=== PATIENT | male | born 1975 | race Caucasian/White ===

== ENCOUNTER 2016-03-28 17:33 | Inpatient (IN) | payer MEDICAID ==
[~2016-03-28] VITALS: Ht 172.7 cm; Wt 73.4 kg
[~2016-03-28 17:33] MED LIST: CLOT15C TD; QUET300T2 PO
[2016-03-28] MEDS ORDERED: INFLUENZA VIRUS VACCINE QVS 2016-17 (3YR+)/PF 60 MCG/0.5 ML SYRINGE IM ONE (19:30)
[2016-03-28] MEDS ORDERED: LORazepam 2 MG/ML VIAL IM ONE (19:45)
[2016-03-28] MEDS ORDERED: HALOPERIDOL LACTATE 5 MG/ML VIAL IM ONE (19:45)
[2016-03-28] MEDS ORDERED: DiphenhydrAMINE HCL 50 MG/ML VIAL IM ONE (19:45)
[2016-03-28 20:05] VITALS: BP 131/75
[2016-03-28 20:15] VITALS: BP 105/68
[2016-03-29 06:45] VITALS: BP 105/63
[2016-03-29 08:05] VITALS: BP 102/65
[2016-03-29] MEDS: LORazepam 2 MG TABLET PO PRN (08:39)
[2016-03-29] MEDS: NICOTINE 21 MG/24 HOUR PATCH TD SCH (08:40)
[2016-03-29] MEDS: FLUoxetine HCL 20 MG CAPSULE PO SCH (10:54)
[2016-03-29] MEDS: OLANZapine 5 MG TABLET PO SCH (10:54)
[2016-03-29 16:40] VITALS: BP 99/57
[2016-03-29 19:59] VITALS: BP 103/72
[2016-03-30 06:09] VITALS: BP 100/62
[2016-03-30 08:45] VITALS: BP 103/68
[2016-03-30] MEDS: OLANZapine 5 MG TABLET PO SCH (09:05)
[2016-03-30] MEDS: NICOTINE 21 MG/24 HOUR PATCH TD SCH (09:05)
[2016-03-30] MEDS: FLUoxetine HCL 20 MG CAPSULE PO SCH (09:05)
[2016-03-30] MEDS: LORazepam 2 MG TABLET PO PRN (14:02)
[2016-03-30 16:00] VITALS: BP 108/67
[2016-03-31 06:41] VITALS: BP 117/68
[2016-03-31 08:43] VITALS: BP 118/70
[2016-03-31] MEDS: OLANZapine 5 MG TABLET PO SCH (09:44)
[2016-03-31] MEDS: FLUoxetine HCL 20 MG CAPSULE PO SCH (09:44)
[2016-03-31] MEDS: LORazepam 2 MG TABLET PO PRN ×3 (09:44→20:20)
[2016-03-31] MEDS: NICOTINE 21 MG/24 HOUR PATCH TD SCH (09:45)
[2016-03-31 16:00] VITALS: BP 110/70
[2016-03-31] MEDS: ZOLPIDEM TARTRATE 10 MG TABLET PO PRN (20:20)
[2016-04-01 05:45] VITALS: BP 105/66
[2016-04-01] MEDS: LORazepam 2 MG TABLET PO PRN ×4 (05:52→18:48)
[2016-04-01 08:07] VITALS: BP 109/66
[2016-04-01] MEDS: FLUoxetine HCL 20 MG CAPSULE PO SCH (08:22)
[2016-04-01] MEDS: NICOTINE 21 MG/24 HOUR PATCH TD SCH (08:22)
[2016-04-01] MEDS: OLANZapine 5 MG TABLET PO SCH (08:22)
[2016-04-01 16:18] VITALS: BP 118/64
[2016-04-01] MEDS: ZOLPIDEM TARTRATE 10 MG TABLET PO PRN (20:32)
[2016-04-02] MEDS: LORazepam 2 MG TABLET PO PRN ×4 (05:39→19:10)
[2016-04-02] MEDS: OLANZapine 5 MG TABLET PO SCH (08:03)
[2016-04-02] MEDS: FLUoxetine HCL 20 MG CAPSULE PO SCH (08:03)
[2016-04-02] MEDS: NICOTINE 21 MG/24 HOUR PATCH TD SCH (08:04)
[2016-04-02 16:11] VITALS: BP 117/67
[2016-04-02] MEDS: HALOPERIDOL 5 MG TABLET PO PRN (18:35)
[2016-04-02] MEDS: ZOLPIDEM TARTRATE 10 MG TABLET PO PRN (21:20)
[2016-04-03 05:15] VITALS: BP 119/63
[2016-04-03] MEDS: LORazepam 2 MG TABLET PO PRN (05:25)
[2016-04-03] MEDS: HALOPERIDOL 5 MG TABLET PO PRN (05:25)
[2016-04-03] MEDS ORDERED: OLANZapine 5 MG TABLET PO SCH (09:00)
[2016-04-03] MEDS ORDERED: FLUoxetine HCL 20 MG CAPSULE PO SCH (09:00)
[2016-04-03] MEDS: NICOTINE 21 MG/24 HOUR PATCH TD SCH (09:31)
[2016-04-03] MEDS ORDERED: FLUO40CA7 PO (12:00)
[2016-04-03] MEDS ORDERED: OLAN5TAB30 PO (12:00)
== END 2016-04-03 16:30 | disposition home or self-care (01) | DRG 750 ==
LOC: B2S 19:09 → B3A 20:00
PROVIDERS: ADMIT Psychiatry & Neurology Child & Adolescent Psychiatry; ATTEND Psychiatry & Neurology Child & Adolescent Psychiatry
DX: F25.1 Schizoaffective disorder, depressive type (principal); F33.2 Major depressive disorder, recurrent severe without psychotic features; R45.851 Suicidal ideations; F15.90 Other stimulant use, unspecified, uncomplicated; F17.210 Nicotine dependence, cigarettes, uncomplicated; Z72.89 Other problems related to lifestyle
CPT/HCPCS: J1200; J1630; J2060

== ENCOUNTER 2018-10-11 13:58 | Emergency (ER) | payer MEDICAID ==
[~2018-10-11] VITALS: Ht 175.3 cm; Wt 77.0 kg
[~2018-10-11 13:58] MED LIST changes: -CLOT15C TD; +FLUO40CA7 PO; +OLAN5TAB30 PO; -QUET300T2 PO
[2018-10-11] MEDS ORDERED: ACETAMINOPHEN 500 MG TABLET PO ONE (14:45)
[2018-10-11 15:20] VITALS: BP 124/79
== END 2018-10-11 15:51 | disposition home or self-care (01) ==
LOC: EMS 14:01
DX: M25.511 Pain in right shoulder (principal); R07.81 Pleurodynia; F31.9 Bipolar disorder, unspecified; F17.210 Nicotine dependence, cigarettes, uncomplicated
CPT/HCPCS: 71101; 99406

== ENCOUNTER 2020-05-05 16:24 | Inpatient (IN) | payer MEDICAID ==
[~2020-05-05] VITALS: Ht 167.6 cm; Wt 69.9 kg
[2020-05-05 18:33] LABS: BASOPHILS % (AUTO) 0.2 % (0.0-2.0); HEMATOCRIT 38.1 % (41-53); HEMOGLOBIN 12.5 g/dL (13.5-17.5); LYMPHOCYTES # (AUTO) 1.7 K/uL (1.0-4.8); LYMPHOCYTES % (AUTO) 12.1 % (22.0-44.0); MEAN CORPUSCULAR HEMOGLOBIN 28.8 pg (26.0-34.0); MEAN CORPUSCULAR HGB CONC 32.7 G/dL (31.0-37.0); MEAN CORPUSCULAR VOLUME 88 fL (80-100); MONOCYTES % (AUTO) 7.2 % (2.0-9.0); NEUTROPHILS # (AUTO) 11.3 K/uL (1.8-7.7); NEUTROPHILS % (AUTO) 79.5 % (40.0-70.0); PLATELET COUNT (AUTO) 361 K/uL (150-450); RED BLOOD CELL COUNT(AUTO) 4.32 MIL/uL (4.50-5.90); RED CELL DISTRIBUTION WIDTH 13.8 % (11.5-14.5)
[2020-05-05 18:42] LABS: ANION GAP 9 mmol/L (8-16); CALCIUM, TOTAL 8.3 mg/dL (8.8-10.5); CARBON DIOXIDE 27 mmol/L (22-29); CHLORIDE 103 mmol/L (98-107); CREATININE 0.79 mg/dL (0.60-1.30); GLOMERULAR FILTR. RATE CALC > 60 mL/min (>60); GLUCOSE,RANDOM 92 mg/dL (70-110); POTASSIUM 4.1 mmol/L (3.5-5.1); SODIUM SERUM 139 mmol/L (136-145); UREA NITROGEN, BLOOD 11 mg/dL (7-18)
[2020-05-05 18:47] LABS: AMPHET/METH SCREEN,URINE NEGATIVE (NEGATIVE); BARBITURATE SCREEN, URINE NEGATIVE (NEGATIVE); BENZODIAZEPINES SCREEN,URINE POSITIVE (NEGATIVE); CANNABINOID SCREEN,URINE NEGATIVE (NEGATIVE); COCAINE SCREEN,URINE NEGATIVE (NEGATIVE); METHADONE SCREEN, URINE NEGATIVE (NEGATIVE); OPIATE SCREEN,URINE NEGATIVE (NEGATIVE); PHENCYCLIDINE SCREEN,URINE NEGATIVE (NEGATIVE)
[2020-05-05 18:48] LABS: ALANINE AMINOTRANSFERASE 23 U/L (12-78); ALBUMIN 3.4 g/dL (3.4-5.0); ALKALINE PHOSPHATASE 95 U/L (46-116); ASPARTATE AMINOTRANSFERASE 15 U/L (15-37); BILIRUBIN,TOTAL 0.2 mg/dL (0.1-1.0); TOTAL PROTEIN, SERUM 6.6 g/dL (6.4-8.2)
[2020-05-05] MEDS ORDERED: HALOPERIDOL 5 MG TABLET PO ONE (19:00)
[2020-05-05] MEDS ORDERED: LORazepam 2 MG TABLET PO ONE (19:00)
[2020-05-05 21:13] LABS: COVID AG,FIA SOURCE NASOPHARYNGEAL
[2020-05-05 22:10] VITALS: BP 126/66
[2020-05-05] MEDS ORDERED: INFLUENZA VIRUS VACCINE QVS 2020-21 (6MO+)/PF 60 MCG/0.5 ML SYRINGE IM ONE (22:30)
[2020-05-06 06:22] VITALS: BP 105/56
[2020-05-06 08:08] LABS: FREE T4 (FREE THYROXINE) 1.06 ng/dL (0.76-1.46); THYROID STIMULATING HORMONE 0.75 uIU/mL (0.36-3.74)
[2020-05-06 08:09] LABS: HEMOGLOBIN A1C 5.6 % (3.8-5.6)
[2020-05-06 08:11] LABS: CHOL/HDL RATIO 2.3 (4.2-7.3)
[2020-05-06 08:20] VITALS: BP 117/71
[2020-05-06] MEDS: NICOTINE 21 MG/24 HOUR PATCH TD SCH (11:41)
[2020-05-06] MEDS: FLUoxetine HCL 20 MG CAPSULE PO SCH (12:45)
[2020-05-06] MEDS: LORazepam 2 MG TABLET PO PRN (15:04)
[2020-05-06 16:14] VITALS: BP 138/70
[2020-05-06] MEDS ORDERED: ACETAMINOPHEN 325 MG TABLET PO PRN (19:00)
[2020-05-06] MEDS ORDERED: BACITRACIN 28 GM OINTMENT TP PRN (19:00)
[2020-05-06] MEDS ORDERED: MAGNESIUM HYDROXIDE SUSPENSION 30 ML UDCUP PO PRN (19:00)
[2020-05-06] MEDS ORDERED: PETROLATUM,WHITE 28 GM JELLY TP PRN (19:00)
[2020-05-06] MEDS ORDERED: DOCUSATE SODIUM 100 MG CAPSULE PO PRN (19:00)
[2020-05-06] MEDS ORDERED: ALBUTEROL SULFATE HFA 90 MCG/PUFF 8 GM INHALER IH PRN (19:00)
[2020-05-06] MEDS ORDERED: LOPERAMIDE HCL 2 MG CAPSULE PO PRN (19:00)
[2020-05-06] MEDS ORDERED: CloNIDine HCL 0.1 MG TABLET PO PRN (19:00)
[2020-05-06] MEDS ORDERED: MAG HYDROX/AL HYDROX/SIMETH ES 30 ML SUSPENSION UDCUP PO PRN (19:00)
[2020-05-06] MEDS ORDERED: OMEPRAZOLE 20 MG CAPSULE PO PRN (19:00)
[2020-05-06] MEDS ORDERED: IBUPROFEN 600 MG TABLET PO PRN (19:00)
[2020-05-06] MEDS ORDERED: ONDANSETRON HCL 4 MG TABLET PO PRN (19:00)
[2020-05-06] MEDS: OLANZapine 10 MG TABLET PO SCH (20:10)
[2020-05-07 00:23] VITALS: BP 101/61
[2020-05-07 08:22] VITALS: BP 106/68
[2020-05-07] MEDS: FLUoxetine HCL 20 MG CAPSULE PO SCH (08:30)
[2020-05-07] MEDS: NICOTINE 21 MG/24 HOUR PATCH TD SCH (08:30)
[2020-05-07] MEDS: LORazepam 2 MG TABLET PO PRN ×3 (10:48→20:47)
[2020-05-07 16:11] VITALS: BP 116/65
[2020-05-07] MEDS: OLANZapine 10 MG TABLET PO SCH (20:30)
[2020-05-08] MEDS: LORazepam 2 MG TABLET PO PRN ×3 (06:15→16:26)
[2020-05-08 06:27] VITALS: BP 114/70
[2020-05-08] MEDS: FLUoxetine HCL 20 MG CAPSULE PO SCH (08:20)
[2020-05-08] MEDS: NICOTINE 21 MG/24 HOUR PATCH TD SCH (08:20)
[2020-05-08 08:25] VITALS: BP 116/71
[2020-05-08 16:28] VITALS: BP 100/60
[2020-05-08] MEDS: OLANZapine 10 MG TABLET PO SCH (20:12)
[2020-05-09 01:12] VITALS: BP 112/65
[2020-05-09 08:14] VITALS: BP 114/79
[2020-05-09] MEDS: FLUoxetine HCL 20 MG CAPSULE PO SCH (09:02)
[2020-05-09] MEDS: MULTIVITAMINS WITH MINERALS, THERAPEUTIC TABLET PO SCH (09:02)
[2020-05-09] MEDS: NICOTINE 21 MG/24 HOUR PATCH TD SCH (09:03)
[2020-05-09] MEDS: LORazepam 2 MG TABLET PO PRN ×3 (09:07→18:57)
[2020-05-09 16:18] VITALS: BP 104/79
[2020-05-09] MEDS: OLANZapine 10 MG TABLET PO SCH (20:33)
[2020-05-10 01:39] VITALS: BP 89/66
[2020-05-10 06:15] VITALS: BP 110/74
[2020-05-10] MEDS: LORazepam 2 MG TABLET PO PRN ×3 (06:17→16:39)
[2020-05-10 07:37] LABS: COVID AG,FIA SOURCE NASOPHARYNGEAL
[2020-05-10 07:39] LABS: % IRON SATURATION 17.6 % (30-44)
[2020-05-10] MEDS: NICOTINE 21 MG/24 HOUR PATCH TD SCH (08:51)
[2020-05-10] MEDS: MULTIVITAMINS WITH MINERALS, THERAPEUTIC TABLET PO SCH (08:52)
[2020-05-10] MEDS: FLUoxetine HCL 20 MG CAPSULE PO SCH (08:52)
[2020-05-10 09:45] VITALS: BP 131/80
[2020-05-10 16:20] VITALS: BP 113/80
[2020-05-10] MEDS: OLANZapine 10 MG TABLET PO SCH (20:32)
[2020-05-10] MEDS: ZOLPIDEM TARTRATE 10 MG TABLET PO PRN (20:43)
[2020-05-11 05:14] VITALS: BP 143/78
[2020-05-11] MEDS: BENZOCAINE/MENTHOL LOZENGE PO PRN (05:16)
[2020-05-11] MEDS: LORazepam 2 MG TABLET PO PRN ×3 (05:43→17:05)
[2020-05-11] MEDS: MULTIVITAMINS WITH MINERALS, THERAPEUTIC TABLET PO SCH (08:34)
[2020-05-11] MEDS: FLUoxetine HCL 20 MG CAPSULE PO SCH (08:34)
[2020-05-11] MEDS: NICOTINE 21 MG/24 HOUR PATCH TD SCH (08:34)
[2020-05-11 08:41] VITALS: BP 111/77
[2020-05-11 16:11] VITALS: BP 131/76
[2020-05-11] MEDS: OLANZapine 10 MG TABLET PO SCH (20:06)
[2020-05-11] MEDS: ZOLPIDEM TARTRATE 10 MG TABLET PO PRN (20:27)
[2020-05-12 00:26] VITALS: BP 128/74
[2020-05-12] MEDS: LORazepam 2 MG TABLET PO PRN ×2 (06:49→12:22)
[2020-05-12 08:20] VITALS: BP 132/75
[2020-05-12] MEDS: MULTIVITAMINS WITH MINERALS, THERAPEUTIC TABLET PO SCH (08:58)
[2020-05-12] MEDS: FLUoxetine HCL 20 MG CAPSULE PO SCH (08:58)
[2020-05-12] MEDS: NICOTINE 21 MG/24 HOUR PATCH TD SCH (09:00)
[2020-05-12] MEDS: BENZOCAINE/MENTHOL LOZENGE PO PRN (09:57)
[2020-05-12 16:17] VITALS: BP 115/66
[2020-05-12] MEDS: OLANZapine 10 MG TABLET PO SCH (20:04)
[2020-05-12] MEDS: ZOLPIDEM TARTRATE 10 MG TABLET PO PRN (22:10)
[2020-05-13 00:50] VITALS: BP 137/82
[2020-05-13] MEDS: LORazepam 2 MG TABLET PO PRN ×4 (00:52→17:25)
[2020-05-13] MEDS: HALOPERIDOL 5 MG TABLET PO PRN (00:52)
[2020-05-13 07:11] VITALS: BP 119/64
[2020-05-13] MEDS: MULTIVITAMINS WITH MINERALS, THERAPEUTIC TABLET PO SCH (08:21)
[2020-05-13] MEDS: FLUoxetine HCL 20 MG CAPSULE PO SCH (08:21)
[2020-05-13] MEDS: NICOTINE 21 MG/24 HOUR PATCH TD SCH (10:30)
[2020-05-13 16:19] VITALS: BP 119/74
[2020-05-13] MEDS: OLANZapine 10 MG TABLET PO SCH (20:24)
[2020-05-13] MEDS: ZOLPIDEM TARTRATE 10 MG TABLET PO PRN (22:42)
[2020-05-14 04:37] VITALS: BP 116/78
[2020-05-14] MEDS: LORazepam 2 MG TABLET PO PRN (07:15)
[2020-05-14 08:14] VITALS: BP 112/54
[2020-05-14] MEDS: FLUoxetine HCL 20 MG CAPSULE PO SCH (08:28)
[2020-05-14] MEDS: MULTIVITAMINS WITH MINERALS, THERAPEUTIC TABLET PO SCH (08:28)
[2020-05-14] MEDS: NICOTINE 21 MG/24 HOUR PATCH TD SCH (08:29)
[2020-05-14] MEDS: HALOPERIDOL 5 MG TABLET PO PRN ×2 (13:24→17:46)
[2020-05-14 16:44] VITALS: BP 107/78
[2020-05-14] MEDS: OLANZapine 10 MG TABLET PO SCH (21:08)
[2020-05-15 06:25] VITALS: BP 110/67
[2020-05-15 08:16] VITALS: BP 101/62
[2020-05-15] MEDS: FLUoxetine HCL 20 MG CAPSULE PO SCH (08:16)
[2020-05-15] MEDS: MULTIVITAMINS WITH MINERALS, THERAPEUTIC TABLET PO SCH (08:16)
[2020-05-15] MEDS: NICOTINE 21 MG/24 HOUR PATCH TD SCH (08:16)
[2020-05-15 16:13] VITALS: BP 114/78
[2020-05-15] MEDS: OLANZapine 10 MG TABLET PO SCH ×2 (19:57→21:00)
[2020-05-15] MEDS ORDERED: DiphenhydrAMINE HCL 50 MG/ML VIAL IM ONE (20:45)
[2020-05-16 06:28] VITALS: BP 108/64
[2020-05-16 08:08] VITALS: BP 114/71
[2020-05-16] MEDS: MULTIVITAMINS WITH MINERALS, THERAPEUTIC TABLET PO SCH (08:25)
[2020-05-16] MEDS: NICOTINE 14 MG/24 HOUR PATCH TD SCH (08:29)
[2020-05-16] MEDS: FLUoxetine HCL 20 MG CAPSULE PO SCH (08:52)
[2020-05-16] MEDS ORDERED: LORazepam 2 MG/ML VIAL IM ONE (13:30)
[2020-05-16] MEDS ORDERED: HALOPERIDOL LACTATE 5 MG/ML VIAL IM ONE (13:30)
[2020-05-16] MEDS ORDERED: DiphenhydrAMINE HCL 50 MG/ML VIAL IM ONE (13:30)
[2020-05-16 16:32] VITALS: BP 111/72
[2020-05-16] MEDS: OLANZapine 10 MG TABLET PO SCH (20:53)
[2020-05-17 06:07] VITALS: BP 100/60
[2020-05-17 07:59] LABS: HEMATOCRIT 40.8 % (41-53); HEMOGLOBIN 13.6 g/dL (13.5-17.5); MEAN CORPUSCULAR HEMOGLOBIN 28.8 pg (26.0-34.0); MEAN CORPUSCULAR HGB CONC 33.3 G/dL (31.0-37.0); MEAN CORPUSCULAR VOLUME 87 fL (80-100); PLATELET COUNT (AUTO) 508 K/uL (150-450); RED BLOOD CELL COUNT(AUTO) 4.72 MIL/uL (4.50-5.90); RED CELL DISTRIBUTION WIDTH 14.2 % (11.5-14.5)
[2020-05-17 08:22] LABS: ANION GAP 5 mmol/L (8-16); CALCIUM, TOTAL 8.7 mg/dL (8.8-10.5); CARBON DIOXIDE 28 mmol/L (22-29); CHLORIDE 105 mmol/L (98-107); CREATININE 0.77 mg/dL (0.60-1.30); GLOMERULAR FILTR. RATE CALC > 60 mL/min (>60); GLUCOSE,RANDOM 84 mg/dL (70-110); POTASSIUM 4.1 mmol/L (3.5-5.1); SODIUM SERUM 138 mmol/L (136-145); UREA NITROGEN, BLOOD 18 mg/dL (7-18)
[2020-05-17 08:40] VITALS: BP 106/64
[2020-05-17] MEDS: MULTIVITAMINS WITH MINERALS, THERAPEUTIC TABLET PO SCH (08:54)
[2020-05-17] MEDS: NICOTINE 14 MG/24 HOUR PATCH TD SCH (08:54)
[2020-05-17] MEDS: FLUoxetine HCL 20 MG CAPSULE PO SCH (08:54)
[2020-05-17 08:56] LABS: BAND NEUTROPHILS % (MANUAL) 1 % (0-5); LYMPHOCYTES % (MANUAL) 16 % (22-44); MONOCYTES % (MANUAL) 4 % (2-9); SEGMENTED NEUTROPHILS % 79 % (40-70)
[2020-05-17] MEDS: HALOPERIDOL 5 MG TABLET PO PRN (15:33)
[2020-05-17 16:16] VITALS: BP 113/73
[2020-05-17] MEDS ORDERED: LORazepam 2 MG/ML VIAL IM ONE (16:45)
[2020-05-17] MEDS: OLANZapine 10 MG TABLET PO SCH (20:17)
[2020-05-18 06:12] VITALS: BP 103/63
[2020-05-18 07:36] LABS: COVID AG,FIA SOURCE NASOPHARYNGEAL
[2020-05-18 08:00] VITALS: BP 112/63
[2020-05-18] MEDS: MULTIVITAMINS WITH MINERALS, THERAPEUTIC TABLET PO SCH (09:00)
[2020-05-18] MEDS: FLUoxetine HCL 20 MG CAPSULE PO SCH (09:00)
[2020-05-18] MEDS: NICOTINE 14 MG/24 HOUR PATCH TD SCH (09:00)
[2020-05-18 16:12] VITALS: BP 98/66
[2020-05-18] MEDS: OLANZapine 10 MG TABLET PO SCH (20:28)
[2020-05-18] MEDS: BENZTROPINE MESYLATE 0.5 MG TABLET PO SCH (20:35)
[2020-05-19 04:16] VITALS: BP 89/65
[2020-05-19 08:08] VITALS: BP 110/65
[2020-05-19] MEDS: MULTIVITAMINS WITH MINERALS, THERAPEUTIC TABLET PO SCH (08:41)
[2020-05-19] MEDS: FLUoxetine HCL 20 MG CAPSULE PO SCH (08:41)
[2020-05-19] MEDS: NICOTINE 14 MG/24 HOUR PATCH TD SCH (09:06)
[2020-05-19 16:14] VITALS: BP 113/76
[2020-05-19] MEDS: BENZTROPINE MESYLATE 0.5 MG TABLET PO SCH (20:12)
[2020-05-19] MEDS: ZOLPIDEM TARTRATE 10 MG TABLET PO PRN (20:55)
[2020-05-19] MEDS: OLANZapine 10 MG TABLET PO SCH (20:56)
[2020-05-20] VITALS: BP 118/74
[2020-05-20 08:20] VITALS: BP 124/74
[2020-05-20] MEDS: MULTIVITAMINS WITH MINERALS, THERAPEUTIC TABLET PO SCH (09:04)
[2020-05-20] MEDS: FLUoxetine HCL 20 MG CAPSULE PO SCH (09:04)
[2020-05-20] MEDS: NICOTINE 14 MG/24 HOUR PATCH TD SCH (09:06)
[2020-05-20 16:18] VITALS: BP 108/67
[2020-05-20] MEDS: BENZTROPINE MESYLATE 0.5 MG TABLET PO SCH (20:31)
[2020-05-20] MEDS: QUEtiapine FUMARATE 100 MG TABLET PO SCH (20:31)
[2020-05-21 00:27] VITALS: BP 106/62
[2020-05-21] MEDS: MULTIVITAMINS WITH MINERALS, THERAPEUTIC TABLET PO SCH (07:59)
[2020-05-21] MEDS: NICOTINE 14 MG/24 HOUR PATCH TD SCH (07:59)
[2020-05-21] MEDS: FLUoxetine HCL 20 MG CAPSULE PO SCH (08:02)
[2020-05-21 08:12] VITALS: BP 111/73
[2020-05-21 16:09] VITALS: BP 112/74
[2020-05-21] MEDS: BENZTROPINE MESYLATE 0.5 MG TABLET PO SCH (20:27)
[2020-05-21] MEDS: QUEtiapine FUMARATE 100 MG TABLET PO SCH (20:27)
[2020-05-21] MEDS: ZOLPIDEM TARTRATE 10 MG TABLET PO PRN (20:56)
[2020-05-21] MEDS: ASPIRIN 81 MG CHEWABLE TABLET PO SCH (21:11)
[2020-05-22] VITALS: BP 124/71
[2020-05-22] MEDS: ASPIRIN 81 MG CHEWABLE TABLET PO SCH (07:51)
[2020-05-22] MEDS: MULTIVITAMINS WITH MINERALS, THERAPEUTIC TABLET PO SCH (07:51)
[2020-05-22] MEDS: FLUoxetine HCL 20 MG CAPSULE PO SCH (07:52)
[2020-05-22] MEDS: NICOTINE 14 MG/24 HOUR PATCH TD SCH (07:53)
[2020-05-22 08:15] VITALS: BP 124/62
[2020-05-22] MEDS ORDERED: BENZ0.5T44 PO (09:17)
[2020-05-22] MEDS ORDERED: QUET100T PO (09:18)
[2020-05-22] MEDS ORDERED: ASPI-1450 PO (09:19)
== END 2020-05-22 10:20 | disposition home or self-care (01) | DRG 750 ==
LOC: EMS 16:26 → B2S 20:41
PROVIDERS: ADMIT Psychiatry & Neurology Psychiatry; ATTEND Psychiatry & Neurology Psychiatry
DX: F20.9 Schizophrenia, unspecified (principal); R45.851 Suicidal ideations; F12.90 Cannabis use, unspecified, uncomplicated; F17.200 Nicotine dependence, unspecified, uncomplicated; F41.9 Anxiety disorder, unspecified; G47.00 Insomnia, unspecified; K59.00 Constipation, unspecified; Z20.822 Contact with and (suspected) exposure to COVID-19; Z28.21 Immunization not carried out because of patient refusal
CPT/HCPCS: 83036; 83540; 83550; 83735; 84100; 84439; 84443; 85007; 87426; 99285; G0480; J1200; J2060

== ENCOUNTER 2020-06-05 10:31 | Inpatient (IN) | payer MEDICAID ==
[~2020-06-05] VITALS: Ht 172.7 cm; Wt 69.9 kg
[~2020-06-05 10:31] MED LIST changes: +ASPI-1450 PO; +BENZ0.5T44 PO; -OLAN5TAB30 PO; +QUET100T PO
[2020-06-05] MEDS ORDERED: LORazepam 2 MG/ML VIAL IM ONE (10:45)
[2020-06-05] MEDS ORDERED: DiphenhydrAMINE HCL 50 MG/ML VIAL IM ONE (10:45)
[2020-06-05] MEDS ORDERED: HALOPERIDOL LACTATE 5 MG/ML VIAL IM ONE (10:45)
[2020-06-05 11:16] LABS: BASOPHILS % (AUTO) 1.4 % (0.0-2.0); EOSINOPHILS % (AUTO) 5.9 % (1.0-6.0); HEMATOCRIT 42.5 % (41-53); LYMPHOCYTES # (AUTO) 2.1 K/uL (1.0-4.8); LYMPHOCYTES % (AUTO) 38.6 % (22.0-44.0); MEAN CORPUSCULAR HEMOGLOBIN 28.9 pg (26.0-34.0); MEAN CORPUSCULAR HGB CONC 32.9 G/dL (31.0-37.0); MEAN CORPUSCULAR VOLUME 88 fL (80-100); MONOCYTES # (AUTO) 0.4 K/uL (0.1-1.0); NEUTROPHILS # (AUTO) 2.6 K/uL (1.8-7.7); NEUTROPHILS % (AUTO) 46.1 % (40.0-70.0); PLATELET COUNT (AUTO) 401 K/uL (150-450); RED BLOOD CELL COUNT(AUTO) 4.84 MIL/uL (4.50-5.90); RED CELL DISTRIBUTION WIDTH 14.3 % (11.5-14.5)
[2020-06-05 11:22] LABS: ANION GAP 7 mmol/L (8-16); CALCIUM, TOTAL 8.9 mg/dL (8.8-10.5); CARBON DIOXIDE 30 mmol/L (22-29); CHLORIDE 100 mmol/L (98-107); CREATININE 1.07 mg/dL (0.60-1.30); GLOMERULAR FILTR. RATE CALC > 60 mL/min (>60); GLUCOSE,RANDOM 67 mg/dL (70-110); POTASSIUM 3.9 mmol/L (3.5-5.1); SODIUM SERUM 137 mmol/L (136-145); UREA NITROGEN, BLOOD 12 mg/dL (7-18)
[2020-06-05 11:28] LABS: ALANINE AMINOTRANSFERASE 25 U/L (12-78); ALBUMIN 3.8 g/dL (3.4-5.0); ALKALINE PHOSPHATASE 68 U/L (46-116); ASPARTATE AMINOTRANSFERASE 15 U/L (15-37); BILIRUBIN,TOTAL 0.5 mg/dL (0.1-1.0); TOTAL PROTEIN, SERUM 7.1 g/dL (6.4-8.2)
[2020-06-05 14:59] LABS: COVID AG,FIA SOURCE NASOPHARYNGEAL
[2020-06-05] MEDS ORDERED: HALOPERIDOL 5 MG TABLET PO PRN (17:00)
[2020-06-05] MEDS ORDERED: ZOLPIDEM TARTRATE 10 MG TABLET PO PRN (17:00)
[2020-06-05 20:15] VITALS: BP 95/53
[2020-06-05] MEDS ORDERED: BENZTROPINE MESYLATE 0.5 MG TABLET PO SCH (21:00)
[2020-06-05] MEDS ORDERED: QUEtiapine FUMARATE 100 MG TABLET PO SCH (21:00)
[2020-06-06 06:41] VITALS: BP 110/64
[2020-06-06] MEDS ORDERED: ACETAMINOPHEN 325 MG TABLET PO PRN (07:15)
[2020-06-06] MEDS ORDERED: LOPERAMIDE HCL 2 MG CAPSULE PO PRN (07:15)
[2020-06-06] MEDS ORDERED: BENZOCAINE/MENTHOL LOZENGE PO PRN (07:15)
[2020-06-06] MEDS ORDERED: MAG HYDROX/AL HYDROX/SIMETH ES 30 ML SUSPENSION UDCUP PO PRN (07:15)
[2020-06-06] MEDS ORDERED: ONDANSETRON HCL 4 MG TABLET PO PRN (07:15)
[2020-06-06] MEDS ORDERED: BACITRACIN 28 GM OINTMENT TP PRN (07:15)
[2020-06-06] MEDS ORDERED: PETROLATUM,WHITE 28 GM JELLY TP PRN (07:15)
[2020-06-06] MEDS ORDERED: IBUPROFEN 600 MG TABLET PO PRN (07:15)
[2020-06-06] MEDS ORDERED: OMEPRAZOLE 20 MG CAPSULE PO PRN (07:15)
[2020-06-06] MEDS ORDERED: ALBUTEROL SULFATE HFA 90 MCG/PUFF 8 GM INHALER IH PRN (07:15)
[2020-06-06] MEDS ORDERED: MAGNESIUM HYDROXIDE SUSPENSION 30 ML UDCUP PO PRN (07:15)
[2020-06-06] MEDS ORDERED: DOCUSATE SODIUM 100 MG CAPSULE PO PRN (07:15)
[2020-06-06] MEDS ORDERED: CloNIDine HCL 0.1 MG TABLET PO PRN (07:15)
[2020-06-06 08:25] VITALS: BP 95/60
[2020-06-06] MEDS ORDERED: FLUoxetine HCL 20 MG CAPSULE PO SCH (09:00)
[2020-06-06] MEDS: ASPIRIN 81 MG CHEWABLE TABLET PO SCH (09:01)
[2020-06-06 16:25] VITALS: BP 104/64
[2020-06-06] MEDS: QUEtiapine FUMARATE 200 MG TABLET PO SCH (21:07)
[2020-06-07 06:41] VITALS: BP 123/78
[2020-06-07] MEDS: ASPIRIN 81 MG CHEWABLE TABLET PO SCH (08:23)
[2020-06-07 08:30] VITALS: BP 100/60
[2020-06-07] MEDS: LORazepam 2 MG TABLET PO PRN ×3 (11:23→21:08)
[2020-06-07 16:23] VITALS: BP 111/72
[2020-06-07] MEDS: QUEtiapine FUMARATE 200 MG TABLET PO SCH (20:50)
[2020-06-08 04:50] VITALS: BP 115/72
[2020-06-08] MEDS: ASPIRIN 81 MG CHEWABLE TABLET PO SCH (08:29)
[2020-06-08 08:46] VITALS: BP 118/70
[2020-06-08] MEDS: LORazepam 2 MG TABLET PO PRN ×3 (08:56→21:08)
[2020-06-08 16:21] VITALS: BP 110/67
[2020-06-08] MEDS: QUEtiapine FUMARATE 200 MG TABLET PO SCH (21:08)
[2020-06-09 02:00] VITALS: BP 112/62
[2020-06-09] MEDS: LORazepam 2 MG TABLET PO PRN ×2 (08:54→13:43)
[2020-06-09] MEDS: ASPIRIN 81 MG CHEWABLE TABLET PO SCH (08:54)
[2020-06-09 09:08] VITALS: BP 97/60
[2020-06-09 16:25] VITALS: BP 100/60
[2020-06-09] MEDS: QUEtiapine FUMARATE 200 MG TABLET PO SCH (20:16)
[2020-06-10 01:52] VITALS: BP 112/62
[2020-06-10] MEDS: LORazepam 2 MG TABLET PO PRN ×3 (06:23→17:05)
[2020-06-10] MEDS: ASPIRIN 81 MG CHEWABLE TABLET PO SCH (08:44)
[2020-06-10 09:20] VITALS: BP 103/61
[2020-06-10 16:15] VITALS: BP 110/65
[2020-06-10] MEDS: QUEtiapine FUMARATE 200 MG TABLET PO SCH (20:49)
[2020-06-11 02:36] VITALS: BP 115/69
[2020-06-11] MEDS: LORazepam 2 MG TABLET PO PRN (07:10)
[2020-06-11] MEDS: ASPIRIN 81 MG CHEWABLE TABLET PO SCH (08:39)
[2020-06-11 09:02] VITALS: BP 100/60
== END 2020-06-11 11:35 | disposition home or self-care (01) | DRG 750 ==
LOC: EMS 10:41 → B3A 17:41
PROVIDERS: ADMIT Psychiatry & Neurology Psychiatry; ATTEND Psychiatry & Neurology Psychiatry
DX: F20.0 Paranoid schizophrenia (principal); F31.9 Bipolar disorder, unspecified; Z20.822 Contact with and (suspected) exposure to COVID-19; Z87.891 Personal history of nicotine dependence
CPT/HCPCS: 80053; 85025; 87081; 87426; 99291; G0480; J1200; J1630; J2060

== ENCOUNTER 2020-06-15 15:19 | Inpatient (IN) | payer MEDICAID ==
[~2020-06-15] VITALS: Ht 172.7 cm; Wt 68.8 kg
[~2020-06-15 15:19] MED LIST changes: -BENZ0.5T44 PO; -FLUO40CA7 PO
[2020-06-15] MEDS ORDERED: LORazepam 2 MG TABLET PO ONE (19:45)
[2020-06-15] MEDS ORDERED: HALOPERIDOL 5 MG TABLET PO ONE (19:45)
[2020-06-15] MEDS ORDERED: HALOPERIDOL 5 MG TABLET PO PRN (20:15)
[2020-06-15] MEDS ORDERED: ZOLPIDEM TARTRATE 10 MG TABLET PO PRN (20:15)
[2020-06-15 22:49] LABS: COVID AG,FIA SOURCE NASOPHARYNGEAL
[2020-06-16 00:01] LABS: EOSINOPHILS % (AUTO) 0.9 % (1.0-6.0); HEMATOCRIT 39.3 % (41-53); HEMOGLOBIN 12.8 g/dL (13.5-17.5); LYMPHOCYTES # (AUTO) 2.3 K/uL (1.0-4.8); LYMPHOCYTES % (AUTO) 25.2 % (22.0-44.0); MEAN CORPUSCULAR HEMOGLOBIN 28.4 pg (26.0-34.0); MEAN CORPUSCULAR HGB CONC 32.6 G/dL (31.0-37.0); MEAN CORPUSCULAR VOLUME 87 fL (80-100); MONOCYTES # (AUTO) 0.7 K/uL (0.1-1.0); MONOCYTES % (AUTO) 7.3 % (2.0-9.0); NEUTROPHILS # (AUTO) 5.9 K/uL (1.8-7.7); NEUTROPHILS % (AUTO) 65.6 % (40.0-70.0); PLATELET COUNT (AUTO) 371 K/uL (150-450); RED BLOOD CELL COUNT(AUTO) 4.52 MIL/uL (4.50-5.90)
[2020-06-16 00:13] LABS: ANION GAP 10 mmol/L (8-16); CALCIUM, TOTAL 8.4 mg/dL (8.8-10.5); CARBON DIOXIDE 25 mmol/L (22-29); CHLORIDE 107 mmol/L (98-107); CREATININE 0.85 mg/dL (0.60-1.30); GLOMERULAR FILTR. RATE CALC > 60 mL/min (>60); GLUCOSE,RANDOM 85 mg/dL (70-110); POTASSIUM 3.3 mmol/L (3.5-5.1); SODIUM SERUM 142 mmol/L (136-145); UREA NITROGEN, BLOOD 23 mg/dL (7-18)
[2020-06-16 00:20] LABS: ALANINE AMINOTRANSFERASE 24 U/L (12-78); ALBUMIN 3.9 g/dL (3.4-5.0); ALKALINE PHOSPHATASE 69 U/L (46-116); ASPARTATE AMINOTRANSFERASE 15 U/L (15-37); BILIRUBIN,TOTAL 0.4 mg/dL (0.1-1.0); TOTAL PROTEIN, SERUM 6.7 g/dL (6.4-8.2)
[2020-06-16 03:44] LABS: CHOL/HDL RATIO 2.7 (4.2-7.3)
[2020-06-16] MEDS ORDERED: LORazepam 2 MG/ML VIAL IM ONE (07:45)
[2020-06-16] MEDS ORDERED: DiphenhydrAMINE HCL 50 MG/ML VIAL IM ONE (07:45)
[2020-06-16] MEDS ORDERED: HALOPERIDOL LACTATE 5 MG/ML VIAL IM ONE (07:45)
[2020-06-17 06:45] LABS: APPEARANCE,URINE CLEAR (CLEAR); GLUCOSE, URINE (UA) NEGATIVE (NEGATIVE); KETONES,URINE NEGATIVE (NEGATIVE); LEUKOCYTE ESTERASE ,URINE NEGATIVE (NEGATIVE); NITRATE,URINE NEGATIVE (NEGATIVE); OCCULT BLOOD,URINE NEGATIVE (NEGATIVE); PH,URINE 5.5 (5.0-8.0); PROTEIN,URINE NEGATIVE (NEGATIVE); UROBILINOGEN,URINE 0.2 mg/dL (<=1.0)
[2020-06-17 06:50] LABS: AMPHET/METH SCREEN,URINE POSITIVE (NEGATIVE); BARBITURATE SCREEN, URINE NEGATIVE (NEGATIVE); BENZODIAZEPINES SCREEN,URINE NEGATIVE (NEGATIVE); CANNABINOID SCREEN,URINE NEGATIVE (NEGATIVE); COCAINE SCREEN,URINE NEGATIVE (NEGATIVE); METHADONE SCREEN, URINE NEGATIVE (NEGATIVE); OPIATE SCREEN,URINE NEGATIVE (NEGATIVE)
[2020-06-17 06:51] LABS: PHENCYCLIDINE SCREEN,URINE NEGATIVE (NEGATIVE)
[2020-06-17 07:22] LABS: BILIRUBIN,URINE PRELIM. POSITIVE (NEGATIVE)
[2020-06-17] MEDS: LORazepam 2 MG TABLET PO PRN ×3 (10:02→18:43)
[2020-06-17 13:48] VITALS: BP 98/65
[2020-06-17 16:31] VITALS: BP 90/60
[2020-06-18 05:14] VITALS: BP 122/84
[2020-06-18 08:01] VITALS: BP 102/64
[2020-06-18] MEDS: FLUoxetine HCL 20 MG CAPSULE PO SCH (08:35)
[2020-06-18] MEDS: LORazepam 2 MG TABLET PO PRN ×3 (09:54→20:43)
[2020-06-18 16:18] VITALS: BP 99/61
[2020-06-18] MEDS ORDERED: QUEtiapine FUMARATE 300 MG TABLET PO SCH (21:00)
[2020-06-19 04:29] VITALS: BP 109/64
[2020-06-19 08:04] VITALS: BP 110/70
[2020-06-19] MEDS: FLUoxetine HCL 20 MG CAPSULE PO SCH (08:38)
[2020-06-19] MEDS: LORazepam 2 MG TABLET PO PRN ×2 (08:42→12:44)
[2020-06-19] MEDS ORDERED: ARIP400S3 IM (13:20)
[2020-06-19] MEDS ORDERED: QUET300T2 PO (13:29)
[2020-06-19] MEDS ORDERED: FLUO20CA36 PO (13:29)
== END 2020-06-19 14:00 | disposition home or self-care (01) | DRG 750 ==
LOC: EMS 15:19 → B3A 20:16 → UNDOADMIN 20:16 → B3A 06-17 06:26 → EMS 06-17 06:26 → B3A 06-17 11:12 → UNDODISIN 06-19 14:00
PROVIDERS: ADMIT Psychiatry & Neurology Psychiatry; ATTEND Psychiatry & Neurology Psychiatry
DX: F20.9 Schizophrenia, unspecified (principal); F12.90 Cannabis use, unspecified, uncomplicated; F17.210 Nicotine dependence, cigarettes, uncomplicated; Z20.822 Contact with and (suspected) exposure to COVID-19; F41.9 Anxiety disorder, unspecified; G47.00 Insomnia, unspecified
CPT/HCPCS: 80053; 80061; 81003; 85025; 87081; 87426; 96372; 99285; G0480; J1200; J1630; J2060

== ENCOUNTER 2020-06-30 21:27 | Inpatient (IN) | payer MEDICAID ==
[~2020-06-30] VITALS: Ht 172.7 cm; Wt 67.6 kg
[~2020-06-30 21:27] MED LIST changes: -ASPI-1450 PO; +FLUO20CA36 PO; -QUET100T PO; +QUET300T2 PO
[2020-06-30] MEDS ORDERED: HALOPERIDOL LACTATE 5 MG/ML VIAL ONE (21:59)
[2020-06-30] MEDS ORDERED: LORazepam 2 MG/ML VIAL ONE (21:59)
[2020-06-30] MEDS ORDERED: DiphenhydrAMINE HCL 50 MG/ML VIAL ONE (21:59)
[2020-06-30] MEDS ORDERED: LORazepam 2 MG/ML VIAL IM ONE (22:00)
[2020-06-30] MEDS ORDERED: DiphenhydrAMINE HCL 50 MG/ML VIAL IM ONE (22:00)
[2020-06-30] MEDS ORDERED: HALOPERIDOL LACTATE 5 MG/ML VIAL IM ONE (22:00)
[2020-06-30 23:09] LABS: BASOPHILS % (AUTO) 1.5 % (0.0-2.0); EOSINOPHILS % (AUTO) 2.7 % (1.0-6.0); HEMATOCRIT 37.8 % (41-53); HEMOGLOBIN 12.6 g/dL (13.5-17.5); LYMPHOCYTES # (AUTO) 1.8 K/uL (1.0-4.8); LYMPHOCYTES % (AUTO) 26.3 % (22.0-44.0); MEAN CORPUSCULAR HEMOGLOBIN 29.1 pg (26.0-34.0); MEAN CORPUSCULAR HGB CONC 33.4 G/dL (31.0-37.0); MEAN CORPUSCULAR VOLUME 87 fL (80-100); MONOCYTES # (AUTO) 0.5 K/uL (0.1-1.0); MONOCYTES % (AUTO) 6.9 % (2.0-9.0); NEUTROPHILS # (AUTO) 4.3 K/uL (1.8-7.7); NEUTROPHILS % (AUTO) 62.6 % (40.0-70.0); PLATELET COUNT (AUTO) 414 K/uL (150-450); RED BLOOD CELL COUNT(AUTO) 4.34 MIL/uL (4.50-5.90); RED CELL DISTRIBUTION WIDTH 14.5 % (11.5-14.5)
[2020-06-30 23:18] LABS: ANION GAP 11 mmol/L (8-16); CALCIUM, TOTAL 8.4 mg/dL (8.8-10.5); CARBON DIOXIDE 25 mmol/L (22-29); CHLORIDE 107 mmol/L (98-107); CREATININE 0.98 mg/dL (0.60-1.30); GLOMERULAR FILTR. RATE CALC > 60 mL/min (>60); GLUCOSE,RANDOM 94 mg/dL (70-110); POTASSIUM 3.5 mmol/L (3.5-5.1); SODIUM SERUM 143 mmol/L (136-145); UREA NITROGEN, BLOOD 15 mg/dL (7-18)
[2020-06-30 23:24] LABS: ALANINE AMINOTRANSFERASE 33 U/L (12-78); ALBUMIN 3.9 g/dL (3.4-5.0); ALKALINE PHOSPHATASE 64 U/L (46-116); ASPARTATE AMINOTRANSFERASE 29 U/L (15-37); BILIRUBIN,TOTAL 0.3 mg/dL (0.1-1.0); TOTAL PROTEIN, SERUM 6.8 g/dL (6.4-8.2)
[2020-06-30 23:30] LABS: COVID AG,FIA SOURCE NASOPHARYNGEAL
[2020-07-01 03:10] VITALS: BP 104/78
[2020-07-01] MEDS ORDERED: MAG HYDROX/AL HYDROX/SIMETH ES 30 ML SUSPENSION UDCUP PO PRN (07:45)
[2020-07-01] MEDS ORDERED: BACITRACIN 28 GM OINTMENT TP PRN (07:45)
[2020-07-01] MEDS ORDERED: CloNIDine HCL 0.1 MG TABLET PO PRN (07:45)
[2020-07-01] MEDS ORDERED: MAGNESIUM HYDROXIDE SUSPENSION 30 ML UDCUP PO PRN (07:45)
[2020-07-01] MEDS ORDERED: ALBUTEROL SULFATE HFA 90 MCG/PUFF 8 GM INHALER IH PRN (07:45)
[2020-07-01] MEDS ORDERED: ACETAMINOPHEN 325 MG TABLET PO PRN (07:45)
[2020-07-01] MEDS ORDERED: LOPERAMIDE HCL 2 MG CAPSULE PO PRN (07:45)
[2020-07-01] MEDS ORDERED: ONDANSETRON HCL 4 MG TABLET PO PRN (07:45)
[2020-07-01] MEDS ORDERED: PETROLATUM,WHITE 28 GM JELLY TP PRN (07:45)
[2020-07-01] MEDS ORDERED: BENZOCAINE/MENTHOL LOZENGE PO PRN (07:45)
[2020-07-01] MEDS ORDERED: IBUPROFEN 600 MG TABLET PO PRN (07:45)
[2020-07-01] MEDS: OMEPRAZOLE 20 MG CAPSULE PO SCH (09:00)
[2020-07-01] MEDS: DOCUSATE SODIUM 100 MG CAPSULE PO SCH (09:00)
[2020-07-01] MEDS: HALOPERIDOL 5 MG TABLET PO PRN (14:35)
[2020-07-01] MEDS: LORazepam 2 MG TABLET PO PRN (14:35)
[2020-07-01 16:10] VITALS: BP 109/62
[2020-07-01] MEDS: QUEtiapine FUMARATE 300 MG TABLET PO SCH (21:08)
[2020-07-02 05:41] VITALS: BP 112/67
[2020-07-02 08:13] LABS: CHOL/HDL RATIO 2.6 (4.2-7.3); FREE T4 (FREE THYROXINE) 1.06 ng/dL (0.76-1.46); THYROID STIMULATING HORMONE 0.87 uIU/mL (0.36-3.74)
[2020-07-02 08:15] LABS: HEMOGLOBIN A1C 5.4 % (3.8-5.6)
[2020-07-02] MEDS: DOCUSATE SODIUM 100 MG CAPSULE PO SCH (08:21)
[2020-07-02] MEDS: OMEPRAZOLE 20 MG CAPSULE PO SCH (08:21)
[2020-07-02 08:24] VITALS: BP 96/60
[2020-07-02] MEDS: LORazepam 2 MG TABLET PO PRN ×2 (08:24→20:53)
[2020-07-02 16:09] VITALS: BP 90/56
[2020-07-02 20:52] VITALS: BP 102/60
[2020-07-02] MEDS: QUEtiapine FUMARATE 300 MG TABLET PO SCH (20:53)
[2020-07-03 08:21] VITALS: BP 86/52
[2020-07-03] MEDS: DOCUSATE SODIUM 100 MG CAPSULE PO SCH (09:21)
[2020-07-03] MEDS: LORazepam 2 MG TABLET PO PRN ×2 (09:21→20:44)
[2020-07-03] MEDS: OMEPRAZOLE 20 MG CAPSULE PO SCH (09:21)
[2020-07-03 16:00] VITALS: BP 91/56
[2020-07-03] MEDS: QUEtiapine FUMARATE 300 MG TABLET PO SCH (20:44)
[2020-07-03 21:36] VITALS: BP 99/60
[2020-07-04 06:45] VITALS: BP 102/60
[2020-07-04] MEDS: OMEPRAZOLE 20 MG CAPSULE PO SCH (08:49)
[2020-07-04] MEDS: LORazepam 2 MG TABLET PO PRN ×3 (08:49→17:21)
[2020-07-04] MEDS: DOCUSATE SODIUM 100 MG CAPSULE PO SCH (08:49)
[2020-07-04 16:10] VITALS: BP 114/60
[2020-07-04] MEDS: QUEtiapine FUMARATE 300 MG TABLET PO SCH (20:39)
[2020-07-05] MEDS: LORazepam 2 MG TABLET PO PRN ×3 (05:00→19:19)
[2020-07-05] MEDS ORDERED: HALOPERIDOL LACTATE 5 MG/ML VIAL ONE (05:12)
[2020-07-05] MEDS ORDERED: LORazepam 2 MG/ML VIAL ONE (05:12)
[2020-07-05] MEDS ORDERED: DiphenhydrAMINE HCL 50 MG/ML VIAL ONE (05:12)
[2020-07-05] MEDS ORDERED: HALOPERIDOL LACTATE 5 MG/ML VIAL IM ONE (05:15)
[2020-07-05] MEDS ORDERED: LORazepam 2 MG/ML VIAL IM ONE (05:15)
[2020-07-05] MEDS ORDERED: DiphenhydrAMINE HCL 50 MG/ML VIAL IM ONE (05:15)
[2020-07-05] MEDS: DOCUSATE SODIUM 100 MG CAPSULE PO SCH (09:08)
[2020-07-05] MEDS: OMEPRAZOLE 20 MG CAPSULE PO SCH (09:08)
[2020-07-05 16:15] VITALS: BP 107/68
[2020-07-05] MEDS: QUEtiapine FUMARATE 300 MG TABLET PO SCH (20:17)
[2020-07-06] MEDS: DOCUSATE SODIUM 100 MG CAPSULE PO SCH (09:33)
[2020-07-06] MEDS: OMEPRAZOLE 20 MG CAPSULE PO SCH (09:33)
[2020-07-06] MEDS: LORazepam 2 MG TABLET PO PRN ×3 (09:33→20:53)
[2020-07-06] MEDS: QUEtiapine FUMARATE 300 MG TABLET PO SCH (20:53)
[2020-07-07] MEDS: LORazepam 2 MG TABLET PO PRN ×3 (04:22→17:04)
[2020-07-07 04:23] VITALS: BP 123/78
[2020-07-07 08:31] VITALS: BP 100/62
[2020-07-07] MEDS: DOCUSATE SODIUM 100 MG CAPSULE PO SCH (08:54)
[2020-07-07] MEDS: HALOPERIDOL 5 MG TABLET PO PRN (08:55)
[2020-07-07] MEDS: OMEPRAZOLE 20 MG CAPSULE PO SCH (08:55)
[2020-07-07 17:03] VITALS: BP 112/66
[2020-07-07] MEDS: QUEtiapine FUMARATE 300 MG TABLET PO SCH (21:00)
[2020-07-08 03:57] VITALS: BP 101/60
[2020-07-08 08:21] VITALS: BP 94/60
[2020-07-08] MEDS: OMEPRAZOLE 20 MG CAPSULE PO SCH (08:44)
[2020-07-08] MEDS: DOCUSATE SODIUM 100 MG CAPSULE PO SCH (08:44)
[2020-07-08] MEDS: LORazepam 2 MG TABLET PO PRN ×3 (08:45→16:59)
[2020-07-08 16:26] VITALS: BP 106/66
[2020-07-08] MEDS: QUEtiapine FUMARATE 300 MG TABLET PO SCH (20:25)
[2020-07-09 00:16] VITALS: BP 108/62
[2020-07-09] MEDS: LORazepam 2 MG TABLET PO PRN ×4 (04:12→18:12)
[2020-07-09 08:27] VITALS: BP 105/66
[2020-07-09] MEDS: OMEPRAZOLE 20 MG CAPSULE PO SCH (08:38)
[2020-07-09] MEDS: DOCUSATE SODIUM 100 MG CAPSULE PO SCH (08:38)
[2020-07-09 16:14] VITALS: BP 100/61
[2020-07-09] MEDS: QUEtiapine FUMARATE 300 MG TABLET PO SCH (20:29)
[2020-07-09] MEDS: ZOLPIDEM TARTRATE 10 MG TABLET PO PRN (20:30)
[2020-07-10 03:56] VITALS: BP 101/62
[2020-07-10] MEDS: OMEPRAZOLE 20 MG CAPSULE PO SCH (08:03)
[2020-07-10] MEDS: DOCUSATE SODIUM 100 MG CAPSULE PO SCH (08:03)
[2020-07-10] MEDS: LORazepam 2 MG TABLET PO PRN ×3 (08:03→16:40)
[2020-07-10 09:08] VITALS: BP 102/65
[2020-07-10 16:26] VITALS: BP 107/72
[2020-07-10] MEDS: QUEtiapine FUMARATE 200 MG TABLET PO SCH (20:31)
[2020-07-11 04:22] VITALS: BP 108/74
[2020-07-11] MEDS: DOCUSATE SODIUM 100 MG CAPSULE PO SCH (08:32)
[2020-07-11] MEDS: LORazepam 2 MG TABLET PO PRN ×3 (08:32→17:07)
[2020-07-11] MEDS: OMEPRAZOLE 20 MG CAPSULE PO SCH (08:32)
[2020-07-11 08:40] VITALS: BP 100/70
[2020-07-11 16:18] VITALS: BP 105/63
[2020-07-11] MEDS: QUEtiapine FUMARATE 200 MG TABLET PO SCH (20:37)
[2020-07-12 00:25] VITALS: BP 113/76
[2020-07-12] MEDS: OMEPRAZOLE 20 MG CAPSULE PO SCH (08:41)
[2020-07-12] MEDS: LORazepam 2 MG TABLET PO PRN ×3 (08:41→16:41)
[2020-07-12] MEDS: DOCUSATE SODIUM 100 MG CAPSULE PO SCH (08:41)
[2020-07-12 08:48] VITALS: BP 108/69
[2020-07-12 16:26] VITALS: BP 110/73
[2020-07-12] MEDS: QUEtiapine FUMARATE 200 MG TABLET PO SCH (20:43)
[2020-07-13 00:35] VITALS: BP 99/64
[2020-07-13] MEDS: LORazepam 2 MG TABLET PO PRN ×4 (03:22→17:21)
[2020-07-13] MEDS: DOCUSATE SODIUM 100 MG CAPSULE PO SCH (08:37)
[2020-07-13] MEDS: OMEPRAZOLE 20 MG CAPSULE PO SCH (08:38)
[2020-07-13 08:46] VITALS: BP 110/74
[2020-07-13] MEDS: NICOTINE 21 MG/24 HOUR PATCH TD SCH (13:08)
[2020-07-13 16:11] VITALS: BP 139/85
[2020-07-13] MEDS: QUEtiapine FUMARATE 200 MG TABLET PO SCH (19:52)
[2020-07-14 01:33] VITALS: BP 117/70
[2020-07-14] MEDS: LORazepam 2 MG TABLET PO PRN ×3 (05:46→16:26)
[2020-07-14 08:56] VITALS: BP 94/52
[2020-07-14] MEDS: NICOTINE 21 MG/24 HOUR PATCH TD SCH (09:01)
[2020-07-14] MEDS: OMEPRAZOLE 20 MG CAPSULE PO SCH (09:01)
[2020-07-14] MEDS: DOCUSATE SODIUM 100 MG CAPSULE PO SCH (09:01)
[2020-07-14 16:28] VITALS: BP 110/80
[2020-07-14] MEDS: ZOLPIDEM TARTRATE 10 MG TABLET PO PRN (20:08)
[2020-07-14] MEDS: QUEtiapine FUMARATE 200 MG TABLET PO SCH (20:08)
[2020-07-15 00:57] VITALS: BP 118/72
[2020-07-15] MEDS: LORazepam 2 MG TABLET PO PRN ×4 (06:12→18:13)
[2020-07-15 08:00] VITALS: BP 100/51
[2020-07-15] MEDS: OMEPRAZOLE 20 MG CAPSULE PO SCH (08:46)
[2020-07-15] MEDS: DOCUSATE SODIUM 100 MG CAPSULE PO SCH (08:46)
[2020-07-15] MEDS: NICOTINE 21 MG/24 HOUR PATCH TD SCH (08:46)
[2020-07-15 16:13] VITALS: BP 101/70
[2020-07-15] MEDS: QUEtiapine FUMARATE 200 MG TABLET PO SCH (20:22)
[2020-07-16] MEDS: LORazepam 2 MG TABLET PO PRN ×4 (01:22→14:06)
[2020-07-16] MEDS: ZOLPIDEM TARTRATE 10 MG TABLET PO PRN ×2 (01:22→20:44)
[2020-07-16 01:23] VITALS: BP 123/78
[2020-07-16] MEDS: NICOTINE 21 MG/24 HOUR PATCH TD SCH (08:45)
[2020-07-16] MEDS: DOCUSATE SODIUM 100 MG CAPSULE PO SCH (08:45)
[2020-07-16] MEDS: OMEPRAZOLE 20 MG CAPSULE PO SCH (08:45)
[2020-07-16 09:06] VITALS: BP 127/72
[2020-07-16 16:00] VITALS: BP 103/64
[2020-07-16] MEDS: QUEtiapine FUMARATE 200 MG TABLET PO SCH (20:38)
[2020-07-17 03:09] VITALS: BP 100/63
[2020-07-17] MEDS: LORazepam 2 MG TABLET PO PRN ×2 (07:00→11:00)
[2020-07-17 08:43] VITALS: BP 101/62
[2020-07-17] MEDS: DOCUSATE SODIUM 100 MG CAPSULE PO SCH (08:45)
[2020-07-17] MEDS: OMEPRAZOLE 20 MG CAPSULE PO SCH (08:45)
[2020-07-17] MEDS: NICOTINE 21 MG/24 HOUR PATCH TD SCH (08:45)
== END 2020-07-17 13:15 | disposition home or self-care (01) | DRG 750 ==
LOC: EMS 21:29 → B3A 07-01 00:07
PROVIDERS: ADMIT Psychiatry & Neurology Psychiatry; ATTEND Psychiatry & Neurology Psychiatry
DX: F20.0 Paranoid schizophrenia (principal); Z78.1 Physical restraint status; F13.10 Sedative, hypnotic or anxiolytic abuse, uncomplicated; K59.00 Constipation, unspecified; F41.9 Anxiety disorder, unspecified; G47.00 Insomnia, unspecified; F17.210 Nicotine dependence, cigarettes, uncomplicated; F31.9 Bipolar disorder, unspecified; F15.10 Other stimulant abuse, uncomplicated; Z20.822 Contact with and (suspected) exposure to COVID-19; Z79.899 Other long term (current) drug therapy
CPT/HCPCS: 80053; 80061; 83036; 84439; 84443; 85025; 87081; 99291; G0480; J1200; J1630; J2060

== ENCOUNTER 2021-03-14 10:25 | Inpatient (IN) | payer MEDICAID ==
[~2021-03-14] VITALS: Ht 171.4 cm; Wt 68.1 kg
[~2021-03-14 10:25] MED LIST changes: -FLUO20CA36 PO
[2021-03-14] MEDS ORDERED: HALOPERIDOL LACTATE 5 MG/ML VIAL IM ONE (10:45)
[2021-03-14] MEDS ORDERED: LORazepam 2 MG/ML VIAL IM ONE (10:45)
[2021-03-14] MEDS ORDERED: DiphenhydrAMINE HCL 50 MG/ML VIAL IM ONE (10:45)
[2021-03-14 11:11] LABS: COVID AG,FIA SOURCE NASAL SWAB
[2021-03-14 11:40] LABS: HEMATOCRIT 39.8 % (41-53); HEMOGLOBIN 13.6 g/dL (13.5-17.5); LYMPHOCYTES # (AUTO) 1.5 K/uL (1.0-4.8); LYMPHOCYTES % (AUTO) 30.1 % (22.0-44.0); MEAN CORPUSCULAR HEMOGLOBIN 28.9 pg (26.0-34.0); MEAN CORPUSCULAR HGB CONC 34.3 G/dL (31.0-37.0); MEAN CORPUSCULAR VOLUME 84 fL (80-100); MONOCYTES # (AUTO) 0.4 K/uL (0.1-1.0); MONOCYTES % (AUTO) 7.2 % (2.0-9.0); NEUTROPHILS # (AUTO) 3.1 K/uL (1.8-7.7); NEUTROPHILS % (AUTO) 59.7 % (40.0-70.0); PLATELET COUNT (AUTO) 371 K/uL (150-450); RED BLOOD CELL COUNT(AUTO) 4.72 MIL/uL (4.50-5.90); RED CELL DISTRIBUTION WIDTH 14.2 % (11.5-14.5)
[2021-03-14 11:54] LABS: ANION GAP 7 mmol/L (8-16); CALCIUM, TOTAL 9.1 mg/dL (8.8-10.5); CARBON DIOXIDE 28 mmol/L (22-29); CHLORIDE 106 mmol/L (98-107); CREATININE 0.89 mg/dL (0.60-1.30); GLOMERULAR FILTR. RATE CALC > 60 mL/min (>60); GLUCOSE,RANDOM 90 mg/dL (70-110); POTASSIUM 3.8 mmol/L (3.5-5.1); SODIUM SERUM 141 mmol/L (136-145); UREA NITROGEN, BLOOD 12 mg/dL (7-18)
[2021-03-14 11:58] LABS: ALANINE AMINOTRANSFERASE 14 U/L (12-78); ALBUMIN 3.6 g/dL (3.4-5.0); ALKALINE PHOSPHATASE 71 U/L (46-116); ASPARTATE AMINOTRANSFERASE 15 U/L (15-37); BILIRUBIN,TOTAL 0.3 mg/dL (0.1-1.0); TOTAL PROTEIN, SERUM 6.9 g/dL (6.4-8.2)
[2021-03-14] MEDS ORDERED: ZOLPIDEM TARTRATE 10 MG TABLET PO PRN (13:45)
[2021-03-14] MEDS ORDERED: HALOPERIDOL 5 MG TABLET PO PRN (13:45)
[2021-03-14 20:01] VITALS: BP 109/69
[2021-03-14] MEDS ORDERED: INFLUENZA VIRUS VACCINE QVS 2021-22 (6MO+)/PF 60 MCG/0.5 ML SYRINGE IM. ONE (20:30)
[2021-03-15 02:36] VITALS: BP 118/68
[2021-03-15] MEDS: LORazepam 2 MG TABLET PO PRN (08:57)
[2021-03-15] MEDS: QUEtiapine FUMARATE 200 MG TABLET PO SCH ×2 (10:11→20:42)
[2021-03-15] MEDS ORDERED: QUEtiapine FUMARATE 300 MG TABLET PO SCH (10:15)
[2021-03-15] MEDS ORDERED: LOPERAMIDE HCL 2 MG CAPSULE PO PRN (13:45)
[2021-03-15] MEDS ORDERED: ONDANSETRON HCL 4 MG TABLET PO PRN (13:45)
[2021-03-15] MEDS ORDERED: PETROLATUM,WHITE 28 GM JELLY TP PRN (13:45)
[2021-03-15] MEDS ORDERED: ALBUTEROL SULFATE HFA 90 MCG/PUFF 8 GM INHALER IH PRN (13:45)
[2021-03-15] MEDS ORDERED: IBUPROFEN 400 MG TABLET PO PRN (13:45)
[2021-03-15] MEDS ORDERED: NICOTINE 14 MG/24 HOUR PATCH TD PRN (13:45)
[2021-03-15] MEDS ORDERED: MAG HYDROX/AL HYDROX/SIMETH ES 30 ML SUSPENSION UDCUP PO PRN (13:45)
[2021-03-15] MEDS ORDERED: MAGNESIUM HYDROXIDE SUSPENSION 30 ML UDCUP PO PRN (13:45)
[2021-03-15] MEDS ORDERED: ACETAMINOPHEN 325 MG TABLET PO PRN (13:45)
[2021-03-15] MEDS ORDERED: GuaiFENesin/D-METHORPHAN [SUGAR-FREE] 200-20MG/10 ML SYRUP UDCUP PO PRN (13:45)
[2021-03-15] MEDS ORDERED: DOCUSATE SODIUM 100 MG CAPSULE PO PRN (13:45)
[2021-03-15] MEDS ORDERED: CloNIDine HCL 0.1 MG TABLET PO PRN (13:45)
[2021-03-15 16:20] VITALS: BP 107/67
[2021-03-16 05:28] VITALS: BP 118/86
[2021-03-16 08:10] VITALS: BP 122/62
[2021-03-16] MEDS: QUEtiapine FUMARATE 200 MG TABLET PO SCH ×2 (09:00→21:00)
[2021-03-16 16:14] VITALS: BP 101/73
[2021-03-16] MEDS: LORazepam 2 MG TABLET PO PRN (17:57)
[2021-03-17 04:51] VITALS: BP 108/68
[2021-03-17] MEDS: LORazepam 2 MG TABLET PO PRN ×3 (07:07→17:21)
[2021-03-17 08:28] VITALS: BP 122/80
[2021-03-17] MEDS: QUEtiapine FUMARATE 200 MG TABLET PO SCH ×2 (08:41→20:53)
[2021-03-17] MEDS: BENZTROPINE MESYLATE 1 MG TABLET PO SCH ×2 (09:00→20:53)
[2021-03-17 16:38] VITALS: BP 100/61
[2021-03-18 02:14] VITALS: BP 109/69
[2021-03-18] MEDS: LORazepam 2 MG TABLET PO PRN ×2 (07:08→11:08)
[2021-03-18 08:35] VITALS: BP 118/71
[2021-03-18] MEDS: QUEtiapine FUMARATE 200 MG TABLET PO SCH (08:41)
[2021-03-18] MEDS: BENZTROPINE MESYLATE 1 MG TABLET PO SCH (08:41)
[2021-03-20 14:06] LABS: GLUCOMETER DEV NAME(LOC) BV3N.; GLUCOSE,POINT OF CARE 76 MG/DL (70-110)
== END 2021-03-18 14:00 | disposition home or self-care (01) | DRG 750 ==
LOC: EMS 10:29 → B3A 16:31
PROVIDERS: ADMIT Psychiatry & Neurology Psychiatry; ATTEND Psychiatry & Neurology Psychiatry
DX: F25.0 Schizoaffective disorder, bipolar type (principal); R45.851 Suicidal ideations; Z59.00 Homelessness unspecified; F12.90 Cannabis use, unspecified, uncomplicated; F10.10 Alcohol abuse, uncomplicated; F15.90 Other stimulant use, unspecified, uncomplicated; F17.200 Nicotine dependence, unspecified, uncomplicated; F41.9 Anxiety disorder, unspecified; Z78.1 Physical restraint status; R10.13 Epigastric pain; Z79.899 Other long term (current) drug therapy; Z20.822 Contact with and (suspected) exposure to COVID-19
CPT/HCPCS: 80053; 80061; 82962; 85025; 99291; G0480; J1200; J1630; J2060